=== PATIENT | female | born 1950 | race Two or more races ===

== ENCOUNTER 2016-12-15 00:47 | Day surgery (SDC) | payer MEDICARE, MEDICAID ==
[2016-12-15] VITALS (10 sets, daily range): BP systolic 113–136; BP diastolic 48–72; PULSE 69–74; RESP 14–20; O2SAT 91–94
[~2016-12-15 00:47] MED LIST: AMLO5TAB2 PO; ASPI-973 PO; ATOR80TA PO; CARV6.252 PO; DICL100G26 TOPICAL; DICL50TA7 PO; GLPZ5T PO; METF500T4 PO; TICA90TA PO; VALS80TA25 PO
[2016-12-15 08:04] LABS: BASOPHILS % (AUTO) 0.1 % (0-3); EOSINOPHILS % (AUTO) 0.6 % (0-5); Mean Corpuscular Hemoglobin 26.7 pg (27.0-35.0); Mean Corpuscular Volume 84.4 fL (81-100); NEUTROPHILS % (AUTO) 41.5 % (40-74); Platelet Count 199 bil/L (150-400)
[2016-12-15] MEDS ORDERED: Heparin 10,000 Unit/1,000 mL NS Premix IV ONE (08:10)
[2016-12-15] MEDS ORDERED: Heparin 1,000 Units/500 mL NS Premix IV ONE (08:12)
[2016-12-15 08:27] LABS: INR 1.04 ratio
--- NOTE | 2016-12-15 08:38 | NUR ---
Admitted for a heart cath today for ongoing history of chest pressure. Patient has known CAD - currently has had 7 [address] placed at [facility] in [place]. Patient is here with her [place]ian educational sign language interpreter today for today's procedure.
[2016-12-15] MEDS ORDERED: fentaNYL-PF 50 mCg/mL 2 mL Inj ONE (08:43)
[2016-12-15] MEDS ORDERED: Heparin 1,000 Unit/mL 10 mL Inj ONE (08:53)
[2016-12-15] MEDS ORDERED: Nitroglycerin 50,000 mcg/250 mL D5W Premix IV ONE (09:12)
[2016-12-15] MEDS ORDERED: Heparin 25,000 Unit/500 mL 0.45% NS Premix IV ONE (09:52)
--- NOTE | 2016-12-15 10:15 | CS94 ---
[address] [address] DIAGNOSTIC CARDIAC CATHETERIZATION PATIENT: CHLOÉ GRANGER : 1950 MR#: [id number] ADMIT: 12/15/2016 JOB ID: [id number] SERVICE DATE: 12/15/2016 CHIEF COMPLAINT: Chest pain. PATIENT PRESENTATION: This is a complex 66-year-old woman with diabetes, hypertension, hyperlipidemia and personal history of coronary artery disease. She has had three interventions in the past six months. Most recently, July 2016, and she had recent abnormal stress test as well as angina which in her case manifests as burning substernal chest discomfort. PROCEDURES PERFORMED: 1. Left heart catheterization-selective coronary angiograms. 2. Right common femoral artery access under ultrasound guidance. 3. Left ventricular end-diastolic pressure recording, ventriculogram deferred by intention. 4. A StarClose closure device for hemostasis. X-RAY DYE USED: 100 mL. COMPLICATIONS: None. METHOD: Following informed consent, the patient was prepped and draped in the usual sterile fashion. A 6-Korean sheath was placed in the right common femoral artery. Sheath placement was confirmed via femoral angiogram. JL-4 and JR-4 catheters were used to engage left main and right coronary artery ostia respectively. The JL-4 did not seat in the left main so I used JL-3.5 and that was a little bit more successful. Hand injection in craniocaudal angulation was used to obtain selective coronary angiograms. All exchanges were performed over a wire. FINDINGS: Right common femoral artery gives rise to SFA and profunda. The sheath enters the right common femoral artery at the lower third of the femoral head. At the bifurcation site, there is no evidence of contrast extravasation or dissection. Left main is demonstrating 99% stenosis in its distal portion. It is a very short vessel. It gives rise to LAD and circumflex. Left main dampened on engagement and there was no blow back. Left anterior descending has been previously stented both with bioabsorbable stents and on two long drug-eluting stents, most recently in July 2016. Unfortunately two large diagonal vessels that were previously noted on prior angiograms are no longer present. They appears to be occluded due to jailing. Large septal precision lens grinder apprentice demonstrates 90% ostial stenosis. There is only one visualized diagonal branch which would have been a third diagonal branch. It is a small vessel and there is no evidence of hemodynamically significant stenosis there. The evidence of prior diagonal branches readily visualized because there is a stent that was previously deployed there. Circumflex is a nondominant vessel. Of course, it has been previously stented. So the circumflex demonstrates 90% proximal stenosis in the previously stented portion. Circumflex gives rise to a large OM 1 and large OM 2. Right coronary artery is a dominant vessel. It gives rise to PDA and PL branches. No obstructive lesions are seen. We can visualize collaterals going from the PDA to the LAD territory. HEMODYNAMICS: Filling pressure was 20. No evidence of aortic stenosis based on pullback. IMPRESSION: Severe coronary artery disease involving distal left main, with occluded previously deployed diagonal stent, occluded jailed second diagonal vessel, and 99% proximal circumflex. PLAN: I recommend surgical revascularization. Thank you very much for the opportunity to evaluate.
--- NOTE | 2016-12-15 10:48 | NUR ---
Returned from medical lab director with a plan for a CABG down [facility]. Dr Vernon is discussing her case with [place] [facility] Right groin puncture - star closure. Started on Heparin gtt at 1000 Units/hr. Family at bedside and understand plan of care. NSR rates in the 60's.
--- NOTE | 2016-12-15 12:45 | NUR ---
ACLS Transfer reported off to and patient understands she is going to the [facility] under the care of Dr Meg Pichardo. Post heart cath 2 hour Bed rest has completed. Patient's right femoral puncture site is sealed with star closure device which is secure and dry. Track ooze scant amount, dressing changed prior to transport. Pt up to bedside commode prior to transfer - Right femoral site remains soft and non-tender after transfer from commode to bed. Transfer report attempted, but battery charger was not available to take report. [facility] office secretary stated, "she will call you back". NSR - NSB with no ectopy and no active Chest pain/pressure.
--- NOTE | 2016-12-15 13:50 | NUR ---
Telephone Transfer report given to [facility] to [facility] Charge for unit - 6NE.
[2016-12-16] MEDS ORDERED: Heparin 25K Unit/500mL 0.45 NS 25,000 UNIT in IV Premix 1 EACH IV ONE (08:30)
== END 2016-12-15 23:59 | disposition home or self-care (01) ==
LOC: SOUO 00:47
PROVIDERS: ATTEND Internal Medicine
DX: I25.119 Atherosclerotic heart disease of native coronary artery with unspecified angina pectoris (principal); T82.855A Stenosis of coronary artery stent, initial encounter; Y84.8 Other medical procedures as the cause of abnormal reaction of the patient, or of later complication, without mention of misadventure at the time of the procedure
CPT/HCPCS: 36415; 80048; 85025; 85610; 93005; 93458; 99152; 99153; C1760; C1769; J1200; J1644; J2060; J2250; J3010; Q9967